=== PATIENT | male | born 1945 | race Caucasian/White ===

== ENCOUNTER → 2022-02-22 | Outpatient (CLI) | payer MEDICARE | LOC: CT 10:30 | DX: R41.3 Other amnesia (principal); H54.7 Unspecified visual loss; R01.1 Cardiac murmur, unspecified; D51.9 Vitamin B12 deficiency anemia, unspecified; E55.9 Vitamin D deficiency, unspecified; R53.83 Other fatigue | CPT/HCPCS: 36415; 70470; 82565; 84520; Q9967 ==

== ENCOUNTER → 2022-02-23 | Outpatient (CLI) | payer MEDICARE, OTHER ==
[~2022-02-23] MED LIST: ASPIRIN EC81 MG PO; ATORVASTATIN CA20 MG PO
== END ==
LOC: MRI 14:56
DX: I63.9 Cerebral infarction, unspecified (principal)
CPT/HCPCS: 70551

== ENCOUNTER 2022-02-24 11:28 | Observation (INO) | payer MEDICARE, OTHER ==
[~2022-02-24] VITALS: Ht 177.8 cm; Wt 85.7 kg
[2022-02-24 13:14] LABS: HEMOGLOBIN 16.1 gm/dl (14.0-17.5); RED BLOOD COUNT 4.94 M/UL (4.20-5.50); WHITE BLOOD COUNT 8.2 K/UL (4.5-11.0)
[2022-02-24 14:40] LABS: BUN/CREATININE RATIO 21 (0-10)
[2022-02-25 02:22] LABS: HEMOGLOBIN 16.6 gm/dl (14.0-17.5); RED BLOOD COUNT 4.89 M/UL (4.20-5.50); WHITE BLOOD COUNT 8.5 K/UL (4.5-11.0)
[2022-02-25 02:59] LABS: BUN/CREATININE RATIO 20 (0-10)
[2022-02-25] MEDS ORDERED: ASPIRIN EC81 MG PO (14:12)
[2022-02-25] MEDS ORDERED: ATORVASTATIN CA20 MG PO (14:12)
== END 2022-02-25 15:41 | disposition home or self-care (01) ==
LOC: ER1 11:28 → CDU 15:53 → M/S 15:53
PROVIDERS: Physician Assistant; Physician Assistant Medical; ADMIT Internal Medicine
DX: I63.89 Other cerebral infarction (principal); Z88.0 Allergy status to penicillin; Z88.2 Allergy status to sulfonamides; Z91.040 Latex allergy status; Z91.041 Radiographic dye allergy status; Z91.018 Allergy to other foods
CPT/HCPCS: ECHO; 70450; 70496; 70498; 71045; 80048; 80053; 80061; 81001; 82550; 82553; 83735; 84484; 85025; 85027; 87086; 93005; 93306; 96374; 99285; G0378; J2405; Q9967